=== PATIENT | female | born 2000 | race Two or more races ===

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

== ENCOUNTER 2019-02-06 19:41 | Emergency (ER) | payer MEDICAID ==
[~2019-02-06] VITALS: Ht 160 cm; Wt 93.4 kg
[2019-02-06] MEDS ORDERED: IBUPROFEN 600 MG TAB PO ONE (20:15)
[2019-02-06 20:23] LABS: Urine Bacteria NONE SEEN /hpf (None Seen); Urine Blood 1+ /uL (Negative); Urine Specific Gravity 1.024 (1.001-1.035); Urine WBC 2 /hpf (0 - 5)
[2019-02-06 23:23] VITALS: BP 129/74
== END 2019-02-06 23:40 | disposition home or self-care (01) ==
LOC: ER 19:54
DX: R50.9 Fever, unspecified (principal); N39.0 Urinary tract infection, site not specified
CPT/HCPCS: 81001

== ENCOUNTER 2019-06-10 19:23 | Emergency (ER) | payer MEDICAID ==
[~2019-06-10] VITALS: Ht 165.1 cm; Wt 72.6 kg
[2019-06-10 19:35] VITALS: BP 143/97
== END 2019-06-10 22:34 | disposition left against medical advice (07) ==
LOC: ER 19:27
DX: R06.02 Shortness of breath (principal); Z53.21 Procedure and treatment not carried out due to patient leaving prior to being seen by health care provider